=== PATIENT | male | born 1935 | race Caucasian/White ===

== ENCOUNTER 2023-06-02 15:18 | Inpatient (IN) | payer MEDICARE, OTHER ==
[~2023-06-02] VITALS: Ht 172.7 cm; Wt 112.5 kg
[2023-06-02 16:14] LABS: BASOPHILS # (AUTO) 0.1 K/uL (0.0-0.2); BASOPHILS % (AUTO) 0.5 % (0.0-2.0); EOSINOPHILS # (AUTO) 0.1 K/uL (0.0-0.7); EOSINOPHILS % (AUTO) 0.9 % (0.0-6.0); HEMATOCRIT 43 % (39-51); HEMOGLOBIN 13.8 g/dL (13.5-17.5); LYMPHOCYTES # (AUTO) 2.3 K/uL (0.8-4.8); LYMPHOCYTES % (AUTO) 21.4 % (20.0-44.0); MEAN CORPUSCULAR HEMOGLOBIN 23 PG (26.0-33.0); MEAN CORPUSCULAR HGB CONC 32 g/dl (31.0-36.0); MEAN CORPUSCULAR VOLUME 73 fL (80-96); MONOCYTES % (AUTO) 9.5 % (2.0-12.0); NEUTROPHILS # (AUTO) 7.3 K/uL (1.8-8.9); NEUTROPHILS % (AUTO) 67.7 % (43.0-81.0); PLATELET COUNT (AUTO) 264 K/uL (150-450); RED CELL DISTRIBUTION WIDTH 17.1 % (11.5-15.0); WHITE BLOOD COUNT (AUTO) 10.8 K/uL (4.3-11.0)
[2023-06-02 16:55] LABS: INR 1.06 (0.91-1.10); PARTIAL THROMBOPLASTIN TIME 31.3 SEC (24.3-34.3); PROTHROMBIN TIME 11.1 SECS (9.2-11.1)
[2023-06-02] MEDS ORDERED: MECLIZINE HCL 25 MG TABLET ONE (17:00)
[2023-06-02] MEDS ORDERED: MECLIZINE HCL 12.5 MG TABLET PO ONE (17:00)
[2023-06-02 17:15] LABS: CALCIUM, SERUM 9.9 mg/dL (8.5-10.1); CARBON DIOXIDE 24 mmol/L (21-32); CHLORIDE 102 mmol/L (98-107); CREATININE 1.7 mg/dL (0.6-1.3); GLUCOSE 232 mg/dL (74-106); POTASSIUM 4.7 mmol/L (3.5-5.1); SODIUM SERUM 136 mmol/L (136-145); UREA NITROGEN, BLOOD 30 mg/dL (7-18)
[2023-06-02 17:20] LABS: ALANINE AMINOTRANSFERASE 25 U/L (12-78); ALBUMIN 3.4 g/dL (3.4-5.0); ALKALINE PHOSPHATASE 107 U/L (46-116); ASPARTATE AMINOTRANSFERASE 19 U/L (15-37); BILIRUBIN,DIRECT 0.1 mg/dL (0.0-0.2); BILIRUBIN,TOTAL 0.7 mg/dL (0.2-1.0); TOTAL PROTEIN, SERUM 7.5 g/dL (6.4-8.2)
[2023-06-02 17:44] LABS: AMPHETAMINE, URINE NEGATIVE (NEGATIVE); BARBITURATE, URINE NEGATIVE (NEGATIVE); BENZODIAZEPINE, URINE NEGATIVE (NEGATIVE); CANNABINOID, URINE NEGATIVE (NEGATIVE); COCCAINE, URINE NEGATIVE (NEGATIVE); OPIATE, URINE NEGATIVE (NEGATIVE); PHENCYCLIDINE SCREEN,URINE NEGATIVE (NEGATIVE)
[2023-06-02 17:46] LABS: NT-PRO BNP 155 pg/mL (0-125); THYROID STIMULATING HORMONE 1.864 uIU/mL (0.358-3.74)
[2023-06-02 18:07] LABS: APPEARANCE,URINE CLEAR (CLEAR); BILIRUBIN,URINE NEGATIVE (NEGATIVE); BLOOD, URINE 1+ Ery/uL (NEGATIVE); COLOR,URINE YELLOW (YELLOW); KETONES,URINE TRACE mg/dL (NEGATIVE); LEUKOCYTE ESTERASE ,URINE NEGATIVE (NEGATIVE); NITRITE, URINE NEGATIVE (NEGATIVE); PROTEIN,URINE 1+ mg/dl (NEGATIVE); UGLUCOSE TRACE mg/dL (NEGATIVE)
[2023-06-02 18:08] LABS: ALCOHOL, BLOOD < 3 mg/dL (0-10)
[2023-06-02 18:40] LABS: ADD URINE CULTURE NO; BACTERIA,URINE RARE /HPF (None Seen); MUCUS,URINE Many /LPF (None Seen)
[2023-06-02] MEDS ORDERED: IV NS 0.9% 250 ML IV ONE (18:53)
[2023-06-02] MEDS ORDERED: CT SWABBABLE VALVE TRANS SET 1 EA INFUS.SET MC ONE (18:53)
[2023-06-02] MEDS ORDERED: IOHEXOL-350 100 ML VIAL IV ONE (18:53)
[2023-06-02] MEDS ORDERED: IV NS 0.9% 1,000 ML IV ONE (19:30)
[2023-06-02 20:14] LABS: ANISOCYTOSIS 1+; LYMPHOCYTES % (MANUAL) 24 % (16-48); MONOCYTES % (MANUAL) 7 % (0-11.0); NEUTROPHILS % (MANUAL) 69 (42-76); PLATELET ESTIMATE ADEQUATE
[2023-06-02] MEDS ORDERED: ACETAMINOPHEN 325 MG TABLET PO PRN (23:30)
[2023-06-02] MEDS ORDERED: ENOXAPARIN SODIUM 40 MG/0.4 ML DISP.SYRIN SQ SCH (23:30)
[2023-06-02] MEDS ORDERED: ONDANSETRON HCL/PF 4 MG/2 ML VIAL IVP PRN (23:30)
[2023-06-03] VITALS: BP_SYST 109; BP_SYST 115; BP_SYST 145; BP_SYST 148; BP_DIAS 68; BP_DIAS 72; BP_DIAS 82; BP_DIAS 86; TEMP 98.2; O2SAT 96; O2SAT 97
[2023-06-03] MEDS ORDERED: DEXTROSE 50%-WATER 50 ML DISP.SYRIN IV PRN
[2023-06-03] MEDS ORDERED: LEVO88TA5 PO (00:42)
[2023-06-03] MEDS ORDERED: TAMS-12 PO (00:42)
[2023-06-03] MEDS ORDERED: METF-442 PO (00:42)
[2023-06-03] MEDS ORDERED: ATOR10TA PO (00:48)
[2023-06-03] MEDS ORDERED: RAMI10CA69 PO (00:48)
[2023-06-03] MEDS ORDERED: APIX5TAB PO (00:48)
[2023-06-03] MEDS ORDERED: AMIO200T5 PO (00:48)
[2023-06-03] MEDS ORDERED: ERGO500093 PO (00:48)
[2023-06-03] MEDS ORDERED: MECL-159 PO (00:48)
[2023-06-03] MEDS ORDERED: AMLO-213 PO (00:48)
[2023-06-03] MEDS ORDERED: ESCI10TA PO (00:50)
[2023-06-03] MEDS: APIXABAN 5 MG TABLET PO SCH ×3 (01:00→16:47)
[2023-06-03] MEDS: TAMSULOSIN 0.4 MG CAP.SR.24H PO SCH ×2 (01:36→21:07)
[2023-06-03] MEDS: IV NS 0.9% 1,000 ML IV PRN (03:26)
[2023-06-03 04:00] VITALS: BP 139/78; TEMP 98.1; O2SAT 98
[2023-06-03] MEDS: LEVOTHYROXINE SODIUM 88 MCG TABLET PO SCH (06:04)
[2023-06-03 06:24] LABS: BASOPHILS % (AUTO) 0.5 % (0.0-2.0); EOSINOPHILS # (AUTO) 0.1 K/uL (0.0-0.7); EOSINOPHILS % (AUTO) 1.3 % (0.0-6.0); HEMATOCRIT 40 % (39-51); HEMOGLOBIN 12.6 g/dL (13.5-17.5); LYMPHOCYTES # (AUTO) 2.2 K/uL (0.8-4.8); LYMPHOCYTES % (AUTO) 29.2 % (20.0-44.0); MEAN CORPUSCULAR HEMOGLOBIN 23 PG (26.0-33.0); MEAN CORPUSCULAR HGB CONC 32 g/dl (31.0-36.0); MEAN CORPUSCULAR VOLUME 73 fL (80-96); MONOCYTES # (AUTO) 0.7 K/uL (0.1-1.30); MONOCYTES % (AUTO) 9.6 % (2.0-12.0); NEUTROPHILS # (AUTO) 4.5 K/uL (1.8-8.9); NEUTROPHILS % (AUTO) 59.4 % (43.0-81.0); PLATELET COUNT (AUTO) 248 K/uL (150-450); RED BLOOD CELL COUNT(AUTO) 5.42 MIL/uL (4.5-6.0); RED CELL DISTRIBUTION WIDTH 16.8 % (11.5-15.0); WHITE BLOOD COUNT (AUTO) 7.6 K/uL (4.3-11.0)
[2023-06-03] MEDS: BLOOD SUGAR DIAGNOSTIC 1 EACH STRIP IN SCH ×4 (06:30→21:51)
[2023-06-03] MEDS: INSULIN REGULAR, HUMAN 100 UNIT/ML 3 ML VIAL SQ PRN ×4 (06:31→21:46)
[2023-06-03 06:50] LABS: CALCIUM, SERUM 9.1 mg/dL (8.5-10.1); CARBON DIOXIDE 25 mmol/L (21-32); CHLORIDE 103 mmol/L (98-107); CREATININE 1.5 mg/dL (0.6-1.3); GLUCOSE 253 mg/dL (74-106); MAGNESIUM 1.7 mg/dL (1.8-2.4); PHOSPHORUS 3.4 mg/dL (2.5-4.9); POTASSIUM 4.2 mmol/L (3.5-5.1); SODIUM SERUM 135 mmol/L (136-145); UREA NITROGEN, BLOOD 25 mg/dL (7-18)
[2023-06-03 08:00] VITALS: BP 143/84; TEMP 97.9; O2SAT 98
[2023-06-03] MEDS ORDERED: ERGOCALCIFEROL (VITAMIN D 2) 50,000 UNIT CAPSULE PO SCH (09:00)
[2023-06-03] MEDS ORDERED: MAGNESIUM OXIDE 400 MG TABLET PO ONE (09:00)
[2023-06-03] MEDS: MECLIZINE HCL 25 MG TABLET PO SCH (09:28)
[2023-06-03] MEDS: AMIODARONE HCL 200 MG TABLET PO SCH (09:31)
[2023-06-03] MEDS: AMLODIPINE BESYLATE 10 MG TABLET PO SCH (09:32)
[2023-06-03] MEDS ORDERED: CLOPIDOGREL BISULFATE 75 MG TABLET PO ONE (14:00)
[2023-06-03 16:00] VITALS: BP 120/72; TEMP 99.3; O2SAT 95
[2023-06-03] MEDS: ESCITALOPRAM OXALATE (10 MG) 10 MG TABLET PO SCH (16:46)
[2023-06-03 20:30] VITALS: BP 116/64; TEMP 97.9; O2SAT 95
[2023-06-03] MEDS: ATORVASTATIN 10 MG TABLET PO SCH (21:07)
[2023-06-04 00:51] VITALS: BP 129/72; TEMP 97.7; O2SAT 96
[2023-06-04] MEDS: IV NS 0.9% 1,000 ML IV PRN (03:42)
[2023-06-04 04:50] VITALS: BP 115/65; TEMP 97.9; O2SAT 96
[2023-06-04] MEDS: LEVOTHYROXINE SODIUM 88 MCG TABLET PO SCH (06:01)
[2023-06-04] MEDS: INSULIN REGULAR, HUMAN 100 UNIT/ML 3 ML VIAL SQ PRN ×4 (06:02→22:12)
[2023-06-04 07:09] LABS: BASOPHILS % (AUTO) 0.3 % (0.0-2.0); EOSINOPHILS # (AUTO) 0.2 K/uL (0.0-0.7); HEMATOCRIT 38 % (39-51); HEMOGLOBIN 12.1 g/dL (13.5-17.5); LYMPHOCYTES # (AUTO) 2.4 K/uL (0.8-4.8); LYMPHOCYTES % (AUTO) 29.2 % (20.0-44.0); MEAN CORPUSCULAR HEMOGLOBIN 23 PG (26.0-33.0); MEAN CORPUSCULAR HGB CONC 32 g/dl (31.0-36.0); MEAN CORPUSCULAR VOLUME 73 fL (80-96); MONOCYTES # (AUTO) 0.7 K/uL (0.1-1.30); MONOCYTES % (AUTO) 8.8 % (2.0-12.0); NEUTROPHILS # (AUTO) 4.8 K/uL (1.8-8.9); NEUTROPHILS % (AUTO) 59.7 % (43.0-81.0); PLATELET COUNT (AUTO) 233 K/uL (150-450); RED CELL DISTRIBUTION WIDTH 16.9 % (11.5-15.0); WHITE BLOOD COUNT (AUTO) 8.1 K/uL (4.3-11.0)
[2023-06-04 07:24] LABS: CALCIUM, SERUM 9.2 mg/dL (8.5-10.1); CARBON DIOXIDE 25 mmol/L (21-32); CHLORIDE 105 mmol/L (98-107); CREATININE 1.4 mg/dL (0.6-1.3); GLUCOSE 201 mg/dL (74-106); MAGNESIUM 1.9 mg/dL (1.8-2.4); PHOSPHORUS 3.5 mg/dL (2.5-4.9); POTASSIUM 4.1 mmol/L (3.5-5.1); SODIUM SERUM 138 mmol/L (136-145); UREA NITROGEN, BLOOD 24 mg/dL (7-18)
[2023-06-04 08:00] VITALS: BP 155/76; TEMP 98.2; O2SAT 95
[2023-06-04] MEDS: MECLIZINE HCL 25 MG TABLET PO SCH (08:45)
[2023-06-04] MEDS: AMIODARONE HCL 200 MG TABLET PO SCH (08:45)
[2023-06-04] MEDS: CLOPIDOGREL BISULFATE 75 MG TABLET PO SCH (08:45)
[2023-06-04] MEDS: ESCITALOPRAM OXALATE (10 MG) 10 MG TABLET PO SCH (08:46)
[2023-06-04] MEDS: AMLODIPINE BESYLATE 10 MG TABLET PO SCH (08:46)
[2023-06-04] MEDS: APIXABAN 5 MG TABLET PO SCH ×2 (08:50→17:00)
[2023-06-04] MEDS: BLOOD SUGAR DIAGNOSTIC 1 EACH STRIP IN SCH ×4 (08:54→22:11)
[2023-06-04] MEDS ORDERED: REGADENOSON 0.4 MG/5 ML DISP.SYRIN IVP ONE (11:30)
[2023-06-04 16:00] VITALS: BP 118/74; TEMP 97.2; O2SAT 95
[2023-06-04] MEDS ORDERED: IOHEXOL-350 100 ML VIAL IV ONE (16:01)
[2023-06-04] MEDS ORDERED: NITROGLYCERIN 0.4 MG/TAB BOTTLE ONE (16:01)
[2023-06-04] MEDS ORDERED: CT SWABBABLE VALVE TRANS SET 1 EA INFUS.SET MC ONE (16:02)
[2023-06-04] MEDS ORDERED: METOPROLOL TARTRATE INJ 5 MG/5 ML AMPUL ONE (16:02)
[2023-06-04] MEDS ORDERED: IV NS 0.9% 250 ML IV ONE (16:03)
[2023-06-04] MEDS: METOPROLOL TARTRATE INJ 5 MG/5 ML AMPUL IVP PRN ×2 (16:26→16:31)
[2023-06-04] MEDS ORDERED: NITROGLYCERIN 0.4 MG/TAB BOTTLE SL ONE (16:30)
[2023-06-04 17:50] LABS: CREATININE, URINE 106.2 MG/DL (30.0-125.0); URINE TOTAL PROTEIN 26.7 mg/dL (0-11.9)
[2023-06-04 17:56] LABS: APPEARANCE,URINE CLEAR (CLEAR); BILIRUBIN,URINE NEGATIVE (NEGATIVE); BLOOD, URINE 2+ Ery/uL (NEGATIVE); COLOR,URINE YELLOW (YELLOW); KETONES,URINE NEGATIVE (NEGATIVE); LEUKOCYTE ESTERASE ,URINE NEGATIVE (NEGATIVE); NITRITE, URINE NEGATIVE (NEGATIVE); PROTEIN,URINE TRACE mg/dl (NEGATIVE); UGLUCOSE TRACE mg/dL (NEGATIVE)
[2023-06-04 18:26] LABS: ADD URINE CULTURE NO; BACTERIA,URINE Rare /HPF (None Seen); SQUAMOUS EPITHELIAL CELL,UR Rare /HPF (None Seen); WBC,URINE NONE SEEN /HPF (0-3)
[2023-06-04 19:21] LABS: EOSINOPHIL,URINE None Seen
[2023-06-04 20:00] VITALS: BP 131/80; TEMP 97.6; O2SAT 97
[2023-06-04] MEDS: ATORVASTATIN 10 MG TABLET PO SCH (22:11)
[2023-06-04] MEDS: TAMSULOSIN 0.4 MG CAP.SR.24H PO SCH (22:11)
[2023-06-05] VITALS: BP 146/84; TEMP 97.6; O2SAT 96
[2023-06-05 04:00] VITALS: BP 122/73; TEMP 97.4; O2SAT 98
[2023-06-05] MEDS: IV NS 0.9% 1,000 ML IV PRN (05:14)
[2023-06-05 06:29] LABS: BASOPHILS % (AUTO) 0.6 % (0.0-2.0); EOSINOPHILS # (AUTO) 0.2 K/uL (0.0-0.7); EOSINOPHILS % (AUTO) 2.2 % (0.0-6.0); HEMATOCRIT 38 % (39-51); LYMPHOCYTES # (AUTO) 2.4 K/uL (0.8-4.8); LYMPHOCYTES % (AUTO) 29.2 % (20.0-44.0); MEAN CORPUSCULAR HEMOGLOBIN 23 PG (26.0-33.0); MEAN CORPUSCULAR HGB CONC 32 g/dl (31.0-36.0); MEAN CORPUSCULAR VOLUME 73 fL (80-96); MONOCYTES # (AUTO) 0.8 K/uL (0.1-1.30); MONOCYTES % (AUTO) 9.5 % (2.0-12.0); NEUTROPHILS # (AUTO) 4.7 K/uL (1.8-8.9); NEUTROPHILS % (AUTO) 58.5 % (43.0-81.0); PLATELET COUNT (AUTO) 245 K/uL (150-450); RED BLOOD CELL COUNT(AUTO) 5.21 MIL/uL (4.5-6.0); RED CELL DISTRIBUTION WIDTH 16.7 % (11.5-15.0); WHITE BLOOD COUNT (AUTO) 8.1 K/uL (4.3-11.0)
[2023-06-05] MEDS: LEVOTHYROXINE SODIUM 88 MCG TABLET PO SCH (06:29)
[2023-06-05] MEDS: BLOOD SUGAR DIAGNOSTIC 1 EACH STRIP IN SCH ×3 (06:40→17:24)
[2023-06-05] MEDS: INSULIN REGULAR, HUMAN 100 UNIT/ML 3 ML VIAL SQ PRN ×3 (06:42→17:26)
[2023-06-05 07:47] LABS: ALBUMIN 2.8 g/dL (3.4-5.0); BILIRUBIN,TOTAL 0.7 mg/dL (0.2-1.0); CREATININE 1.3 mg/dL (0.6-1.3); MAGNESIUM 1.6 mg/dL (1.8-2.4); PHOSPHORUS 3.5 mg/dL (2.5-4.9); POTASSIUM 4.4 mmol/L (3.5-5.1); TOTAL PROTEIN, SERUM 6.2 g/dL (6.4-8.2)
[2023-06-05 08:21] VITALS: BP 143/82; TEMP 97.8; O2SAT 97
[2023-06-05] MEDS: ESCITALOPRAM OXALATE (10 MG) 10 MG TABLET PO SCH (09:04)
[2023-06-05] MEDS: AMIODARONE HCL 200 MG TABLET PO SCH (09:04)
[2023-06-05] MEDS: CLOPIDOGREL BISULFATE 75 MG TABLET PO SCH (09:05)
[2023-06-05] MEDS: MECLIZINE HCL 25 MG TABLET PO SCH (09:05)
[2023-06-05] MEDS: AMLODIPINE BESYLATE 10 MG TABLET PO SCH (09:05)
[2023-06-05] MEDS: APIXABAN 5 MG TABLET PO SCH ×2 (09:09→17:23)
[2023-06-05] MEDS ORDERED: MAGNESIUM OXIDE 400 MG TABLET PO ONE (14:00)
[2023-06-05 16:16] VITALS: BP 131/70; TEMP 98.1; O2SAT 97
[2023-06-05] MEDS ORDERED: diphenhydrAMINE HCL 25 MG CAPSULE PO PRN (18:00)
[2023-06-05] MEDS ORDERED: CLOPIDOGREL BISULFATE 300 MG TABLET PO ONE (19:00)
[2023-06-05] MEDS ORDERED: CLOP75TA15 PO (20:01)
== END 2023-06-05 20:30 | disposition home health service (06) | DRG 73 ==
LOC: ER 15:32 → TELE 21:56
PROVIDERS: ADMIT Nurse Practitioner Acute Care; ATTEND Nurse Practitioner Family
DX: G90.8 Other disorders of autonomic nervous system (principal); N17.0 Acute kidney failure with tubular necrosis; E44.1 Mild protein-calorie malnutrition; E87.1 Hypo-osmolality and hyponatremia; D68.69 Other thrombophilia; E83.42 Hypomagnesemia; I25.10 Atherosclerotic heart disease of native coronary artery without angina pectoris; Z20.822 Contact with and (suspected) exposure to COVID-19; D64.9 Anemia, unspecified; E03.9 Hypothyroidism, unspecified; E11.22 Type 2 diabetes mellitus with diabetic chronic kidney disease; E78.5 Hyperlipidemia, unspecified; E88.09 Other disorders of plasma-protein metabolism, not elsewhere classified; Z85.46 Personal history of malignant neoplasm of prostate; Z79.4 Long term (current) use of insulin; E66.01 Morbid (severe) obesity due to excess calories; N18.9 Chronic kidney disease, unspecified; Z95.5 Presence of coronary angioplasty implant and graft; Z68.37 Body mass index [BMI] 37.0-37.9, adult; I12.9 Hypertensive chronic kidney disease with stage 1 through stage 4 chronic kidney disease, or unspecified chronic kidney disease; I08.3 Combined rheumatic disorders of mitral, aortic and tricuspid valves; Z79.84 Long term (current) use of oral hypoglycemic drugs; R53.1 Weakness
CPT/HCPCS: 36415; 70496-TC; 70498-TC; 71045-TC; 75574; 76770-TC; 80048-TC; 80053-TC; 80076-TC; 81001; 82570-TC; 82962-TC; 83735-TC; 83880; 84100-TC; 84300-TC; 84443-TC; 84484-TC; 85025-TC; 85730-TC; 93307-TC; 97112-TC; 97116-TC; 97530-TC; A4223; A9502; C9803; G0378; G0480; J1650; J1815; J2785; J3490; J7030; J7050; J8597; Q0163; Q9967